=== PATIENT | female | born 1940 | race Caucasian/White ===

== ENCOUNTER 2016-07-02 08:54 | Inpatient (IN) ==
[2016-07-02] MEDS ORDERED: Naloxone 0.4 MG/ML INJ IVP PRN (12:08)
[2016-07-02] MEDS ORDERED: Ondansetron 4 MG/2 ML VIAL IVP PRN (12:08)
--- NOTE | 2016-07-02 12:21 | Internal Med History&Physical ---
Date of Encounter: 07/02/16 Time of Encounter: 12:00 Assessment and Plan (1) NSTEMI (non-ST elevated myocardial infarction) Current visit: Yes Status: Acute 1 patient experiencing fullness radiating to chest pain radiating bilaterally to arms been going on for approximately 2 weeks. She presented to [facility] ER and was found to have an elevated troponin 2.09. No ST-T wave abnormalities noted. She was given aspirin general heparin drip. We will continue with heparin drip 2 continue cardiac monitoring 3 continue aspirin and beta garth statin 4 obtain cardiac echo 5 consult cardiology 6 trend troponins (2) HTN (hypertension) Current visit: Yes Status: Chronic 1 presently controlled we will continue with home medications goal was to maintain systolic less than 140 2 low sodium diet Qualifiers: Hypertension type: essential hypertension Qualified Code(s): I10 - Essential (primary) hypertension (3) Diabetes mellitus Current visit: Yes Status: Acute 1 we will hold oral antidiabetics for now Accu-Cheks before meals at bedtime with slight scale insulin, goal is to maintain postprandial less than 180 2 diabetic diet Qualifiers: Diabetes mellitus type: type 2 Diabetes mellitus complication status: without complication Diabetes mellitus termite exterminator insulin use: without termite exterminator use Qualified Code(s): E11.9 - Type 2 diabetes mellitus without complications (4) DVT prophylaxis Current visit: Yes Status: Acute 1 on heparin drip Internal Medicine - H&P: HPI Chief complaint: Chest pain Admitted From: Hospital to Hospital Transfer Plans for Post Hospital Care: Home History of present illness: Ms. Pagan is a 75 year old female past history of diabetes hypertension. According to the patient she has been experiencing intermittent throat pain radiating to her chest. There are no aggravating factors the pain is relieved with rest. She denies any shortness of breath diaphoresis, nausea lightheadedness during these episodes. Patient states that she is recently had her blood pressure medication changed due to lower extremity edema she had been doing well until this morning when she awoke with pain in her throat that radiated down to her chest into both arms. She describes pain as a tightening pressure she was concerned she was having a heart attack she went to the [facility] ER in [place] for evaluation. According to [place] [facility] records patient's first cardiac troponin was 0.[address] T wave abnormalities patient was hypertensive with a systolic blood pressure 190 chest x-ray revealed mild cardiomegaly and some pulmonary vascularity. Patient was given a aspirin as well as a total 0.2 clonidine which did decrease her blood pressure and initiated on a heparin drip. She was transferred to [facility] for further workup and evaluation. Presently patient denies any chest pain or shortness of breath at this time. She is hemodynamically stable lung sounds are clear heart sounds S1 and S2 with no rubs clicks gallops murmurs noted. EKG with no ST T wave abnormalities. Obtain stat troponin. I reviewed his case with Dr. Gardner who agrees with plan. Past Med Surg Social Fam HX - Past Medical History Medical history: diabetes, hyperlipidemia, hypertension Psychiatric history: no psych history - Past Surgical History Surgical History: hysterectomy - Social History Smoking Status: Never smoker Smokeless Tobacco Status: No Alcohol use: none Drug use: none - Family History Mother Living Status: Age at : 66 Cause of : Oviarn Cancer Hx Family Cancer: Yes Father Living Status: Age at : 60 Hx Family Cardiac Disorders: Yes Hx Family Respiratory Disorders: Yes Internal Medicine - H&P: Meds Acetaminophen w/Cod 300-30 mg [Tylenol w/Codeine #3] 1 each PO Q6HR PRN [History] Amlodipine Besylate [Amlodipine Besylate] 10 mg PO DAILY 07/02/16 [History] Aspirin Enteric Coated [Aspirin EC] 81 mg PO DAILY 07/02/16 [History] Atorvastatin [Lipitor] 10 mg PO HS 07/02/16 [History] Carvedilol 12.5 mg PO BID 07/02/16 [History] metFORMIN [Glucophage] 1,000 mg PO BIDWM 07/02/16 [History] Allergies Sulfa (Sulfonamide Antibiotics) Allergy (Severe, Verified 11/01/14 07:35) Hives All Systems PM: A 10-system review of systems was performed and is negative for pertinent findings except as documented above in the HPI. - Constitutional Constitutional: no chills, no fever(s), no night sweats - EENT Eyes: no change in vision, no discharge, no pain, no photophobia Nose, mouth and throat: no dysphagia, no nasal discharge, no neck pain, no sore throat - Cardiovascular Cardiovascular ROS IM: chest pain, edema - Respiratory Respiratory: no cough, no dyspnea, no wheezing, no excessive phlegm production - Gastrointestinal Gastrointestinal: no abdominal pain, no diarrhea, no hematemesis, no hematochezia, no melena, no nausea, no vomiting - Genitourinary Genitourinary: no change in urinary stream, no dysuria, no flank pain, no hematuria - Musculoskeletal Musculoskeletal ROS IM: no numbness, no tingling - Integumentary Integumentary IM: no rash, no unusual bruising - Neurological Neurological ROS: no confusion, no convulsions, no focal weakness, no numbness, no tingling, no tremor(s) - Hematologic/Lymphatic Hematologic/Lymphatic: no easy bruising - Constitutional Vitals: Temp Pulse Resp BP Pulse Ox 98.1 F 55 16 136/63 96 07/02/16 10:58 07/02/16 10:58 07/02/16 10:58 07/02/16 10:58 07/02/16 10:58 General appearance: Present: A&O X 3 - Head Head exam: Present: atraumatic, normocephalic - Eye Eye exam: Present: PERRL, conjuntiva pink, sclera anicteric Pupils: Present: PERRL - Neck Neck exam general surgery: Present: supple, trachea midline. Absent: lymphadenopathy - Respiratory Respiratory exam: Present: CTAB. Absent: accessory muscle use, rales, rhonchi, wheezes - Cardiovascular Cardiovascular exam: Present: RRR, +S1, +S2. Absent: diastolic murmur, gallop, rubs, systolic murmur - GI/Abdominal GI/Abdominal exam: Present: normal bowel sounds, soft, no peritoneal signs. Absent: distended, tenderness - Extremities Exam Extremities exam: Present: warm, radial pulses palpable and symetrical. Absent : calf tenderness, cyanotic, pedal edema - Neurological Exam Neurological exam: Present: CN II-XII intact, oriented X3, no focal deficits. Absent: pronater drift, facial droop, speech deficit - Skin Skin exam: Present: dry, intact Internal Med - H&P Results - Labs CBC & Chem 7: 07/02/16 11:57 Labs: Lab work per [facility] dated 07/02/2016 0 5:23 AM CBC Leukocytes 9.4 hemoglobin 12.3 hematocrit 38 platelets 308 Chem-7 -sodium 141 potassium 4.2 chloride 103 CO2 28 BUN 14 glucose 148 creatinine 0.83 GFR greater than 60 Troponin 0.209 - EKG Data EKG shows normal: sinus rhythm - EKG Data Prior EKG available for review: no - Diagnostic Studies Chest x-ray Additional comments: Per radiology read mild cardiomegaly. Pulmonary vascularity upper limits of normal. Low lung volumes. No gross focal consolidation or pleural effusion or fracture. Mild thoracic curvature
[2016-07-02] MEDS ORDERED: *HR* Heparin 5,000 UNIT/ML VIAL IVP PRN ×2 (12:34)
--- NOTE | 2016-07-02 12:40 | Event Note ---
Date of Encounter: 07/02/16 Time of Encounter: 12:38 Patient seen and examined with nurse practitioner. New Onset crescendo angina. Troponin is elevated due to NSTEMI type 1 most likely vs. Hypertensive emergency. But her pain is definately concerning. Continue heparin drip, Aspirin , coreg. Will speak with cardiology. Repeat EKG. Echocardiography. Continous telemetry monitoring. Full code.
[2016-07-02] MEDS ORDERED: Heparin 25,000 UNIT/500 ML D5W 25,000 UNIT/500 ML MLS IVC SCH (12:45)
[2016-07-02 12:50] LABS: Hematocrit 35.7 % (35.3-44.9); Hemoglobin 11.6 g/dL (11.5-15.4); Mean Corpuscular HGB Conc 32.5 g/dL (31.6-35.5); Mean Corpuscular Hemoglobin 28.1 pg (28.0-33.3); Mean Corpuscular Volume 86.4 fL (83.0-100.0); Mean Platelet Volume 10.2 fL (9.4-12.4); Platelet Count 270 K/mcL (140-400); Red Blood Count 4.13 M/mcL (3.82-4.97); Red Cell Distribution Width 13.7 % (11.5-14.5)
[2016-07-02 12:53] LABS: INR 1.3; Prothrombin Time 13.9 Seconds (9.4-12.1)
--- NOTE | 2016-07-02 14:12 | Cardiology Consult Note ---
Date of Encounter: 07/02/16 Time of Encounter: 13:30 Assessment and Plan (1) NSTEMI (non-ST elevated myocardial infarction) Current Visit: Yes Status: Acute NSTEMI type I vs. II in the setting of severely elevated BP. Typical/atypical features. Troponin 0.209 ([facility]) and 0.20 now. No ischemic ECG changes upon exam. Denies chest pain, reports "light" throat fullness. Risk factors for CAD include: DMII, HTN, HLD, and positive family history. Continue heparin gtt, asa, statin, and betablocker. Will increase statin to 40 mg daily. Continue to trend troponin overnight. Check echocardiogram. Will make NPO after MN for likely ischemic evaluation in the morning. (2) HTN (hypertension) Current Visit: Yes Status: Chronic Reports recent change in blood pressure medication by PCP. Uncontrolled upon presentation to ED, now stable. Continue to monitor and adjust accordingly. Qualifiers: Hypertension type: essential hypertension Qualified Code(s): I10 - Essential (primary) hypertension Discussion w patient/family: The assessment and plan as outlined above was discussed with the patient and/or family members who expressed understanding and agreement. All questions were answered. Thank you for involving us in the care of your patient. Please call with any questions. The patient will be discussed and reviewed with Dr. Barriga; changes to be made accordingly. History of Present Illness Consult date: 07/02/16 Requesting physician: Giorgio Gardner Consult reason: NSTEMI Chief complaint: Chest/throat pain History of present illness: Ms. Pagan is a 75 year old female with PMH significant for DMII, HTN, HLD, and bilateral knee osteoarthritis who presented to [facility] ED with throat pain "choking sensation" with radiation down neck, across chest, and down bilateral arms. Patient states pain lasted seconds to a minute and resolved without intervention. Reports 1 week history of intermittent tongue and neck discomfort , each episode only lasting seconds. Discomfort is not exacerbated with exercise or exertion. Nothing seems to improve pain. PCP recently changed blood pressure medication due to bilateral lower extremity edema. She has followed with Dr. Hernandez for bilateral knee osteoarthritis; has been told she will knee total knee replacement in the near future. Also has upcoming appt. with Dr. Frank for LE vascular extremity "calcification." Past Med Surg Social Fam HX - Past Medical History Attestation: Yes The following information was validated with the patient. Source: patient Medical history: arthritis, diabetes, hyperlipidemia, hypertension Psychiatric history: no psych history - Past Surgical History Surgical History: hysterectomy - Social History Smoking Status: Never smoker Smokeless Tobacco Status: No Alcohol use: none Drug use: none - Family History Mother Living Status: Age at : 66 Cause of : Ovarian CA Hx Family Cancer: Yes Father Living Status: Age at : 60 Hx Family Cardiac Disorders: Yes Hx Family Respiratory Disorders: Yes Brother Living Status: Cause of : reported LA Sister Living Status: Cause of : reported LA Medications and Allergies Acetaminophen w/Cod 300-30 mg [Tylenol w/Codeine #3] 1 each PO Q6HR 07/02/16 [ History] Acetaminophen w/Cod 300-30 mg [Tylenol w/Codeine #3] 1 each PO Q6HR 07/02/16 [ History] Atorvastatin [Lipitor] 10 mg 07/02/16 [History] Coreg 12.5 mg BID 07/02/16 [History] metFORMIN [Glucophage] 1,000 mg PO BIDWM 07/02/16 [History] Allergies Sulfa (Sulfonamide Antibiotics) Allergy (Severe, Verified 11/01/14 07:35) Hives All Systems Review: A 10-system review of systems was performed and is negative for pertinent findings except as documented above in the HPI. - Cardiovascular Cardiovascular: as per HPI Physical Examination Vital Signs, Last 4 Hours Temp Pulse Resp BP Pulse Ox 07/02/16 10:58 98.1 F 55 16 136/63 96 General: Conversant, No Apparent Distress HEENT: Atraumatic, Normocephaly, Mucus Membranes Moist Cardiac: Reg Rate and Rhythm (bradycardiac), Other (2/6 systolic murmur) Lungs: Normal Breath Sounds Neuro: Alert and responsive Abdomen: Soft Skin: No rashes noted on visualized skin Musculoskeletal: No Chest Wall Tenderness Extremities: Normal Pulses, Other (mild BLE non-pitting edema) Results 07/02/16 11:57 Lab Results 07/02/16 07/02/16 07/02/16 11:57 11:57 11:57 WBC 11.8 H Hgb 11.6 Hct 35.7 Plt Count 270 INR 1.3 Troponin I 0.20 H* Active Medications Aspirin (Aspirin Ec) 81 mg PO DAILY [facility] Stop: 01/02/17 09:01 Carvedilol (Coreg) 12.5 mg PO BID [facility] Stop: 01/01/17 21:01 Heparin Sodium (Porcine) (Heparin) 4,000 unit IVP Q6HR PRN PRN Reason: SEE COMMENTS Stop: 01/01/17 12:35 Heparin Sodium (Porcine) (Heparin) 2,000 unit IVP Q6H PRN PRN Reason: SEE COMMENTS Stop: 01/01/17 12:35 Heparin Sodium/Dextrose (Heparin 25,000 Unit/500 Ml D5w) 25,000 unit in 500 mls @ 16.452 mls/hr IVC .Q24H SUMANTH; 12 UNIT/KG/HR PRN Reason: Protocol Stop: 01/01/17 12:46 Insulin Human Lispro (Humalog) 0 units SQ TIDAC SUMANTH PRN Reason: Protocol Stop: 01/01/17 16:31 Naloxone HCl (Narcan) 0.4 mg IVP Q2MIN PRN PRN Reason: Opioid Reversal Stop: 01/01/17 12:09 Ondansetron HCl (Zofran) 4 mg IVP Q8HR PRN PRN Reason: Nausea And Vomiting Stop: 01/01/17 12:09 - Imaging and Cardiology Echo: pending Other Results: HR mid 50's SB - EKG Interpretation EKG results cardiology: personally reviewed Consult Discharge Plan - Plan Referrals: Margareth Meyer MD [Primary Care Provider] -
[2016-07-02 14:48] LABS: Activated Partial Thrombo Time 181.8 Seconds (26.0-36.0)
--- NOTE | 2016-07-02 15:03 | Electrocardiograph Report ---
[place] [id number] Test Date: 2016-07-02 Pat Name: Jocelynn Pagan Department: 111 Room: 2NE33 Gender: F Glaciologist: NINI : 1940 Requested By: Mandy Mansfield Order Number: [id number] Reading MD: Thaddeus Alanis MD Measurements Intervals [place] Rate: 52 P: 43 AR: 172 QRS: -5 QRSD: 93 T: -5 QT: 421 QTc: 402 Interpretive Statements SINUS BRADYCARDIA MODERATE VOLTAGE CRITERIA FOR LVH Electronically Signed On 07-02-2016 15:01:17 EDT by Thaddeus Alanis MD
[2016-07-02 15:07] LABS: Heparin anti-factor XA UFH 1.22 IU/mL (0.30-0.70)
[2016-07-02] MEDS ORDERED: Nitroglycerin 0.4 MG TAB.SUBL SL PRN (15:07)
[2016-07-02] MEDS: Insulin LISPRO 300 UNITS/3 ML VIAL SQ SCH (17:40)
[2016-07-03] MEDS: Acetaminophen 325 MG TABLET PO PRN (01:35)
[2016-07-03 05:53] LABS: Basophils # 0.1 K/mcL (0.0-0.2); Basophils % 0.6 %; Eosinophils # 0.1 K/mcL (0.0-0.6); Eosinophils % 1.2 %; Hematocrit 38.5 % (35.3-44.9); Hemoglobin 12.6 g/dL (11.5-15.4); Immature Granulocytes % 0.4 % (0-4); Lymphocytes # 4.5 K/mcL (0.6-4.6); Lymphocytes % 39.3 %; Mean Corpuscular HGB Conc 32.7 g/dL (31.6-35.5); Mean Corpuscular Hemoglobin 28.2 pg (28.0-33.3); Mean Corpuscular Volume 86.1 fL (83.0-100.0); Monocytes # 0.9 K/mcL (0.0-1.3); Monocytes % 7.6 %; Neutrophils # 5.8 K/mcL (1.6-8.9); Platelet Count 284 K/mcL (140-400); Red Blood Count 4.47 M/mcL (3.82-4.97); Red Cell Distribution Width 13.8 % (11.5-14.5); Segmented Neutrophils % 50.9 %
[2016-07-03 06:17] LABS: BUN/Creatinine Ratio 19 (6-26); Blood Urea Nitrogen 15 mg/dL (7-20); Calcium 9.8 mg/dL (8.6-10.8); Carbon Dioxide 26 mEq/L (19-29); Chloride 105 mEq/L (98-109); Chol/HDL Ratio 2.8 (0-4.9); Cholesterol 155 mg/dL (< 200); Glucose 150 mg/dL (70-99); HDL Cholesterol 55 mg/dL (40-59); LDL Cholesterol,Calculated 75 mg/dL (0-99); Magnesium 1.7 mg/dL (1.6-2.6); Osmolality,Calculated 290 (280-300); Potassium 4.2 mEq/L (3.5-4.5); Sodium 138 mEq/L (136-145); Triglycerides 126 mg/dL (< 150); eGFR For African Americans > 60 (> 60); eGFR For Non-African Americans > 60 (> 60)
[2016-07-03] MEDS ORDERED: Nitroglycerin 1,000 MCG/10 ML VIAL IV ONE (08:10)
[2016-07-03] MEDS ORDERED: 0.9 % Sodium Chloride 1,000 ML ONE ×2 (08:10→08:28)
[2016-07-03] MEDS ORDERED: Heparin 1,000 UNITS/500 mL NS 500 ML ONE (08:10)
[2016-07-03] MEDS ORDERED: *HR* Heparin 10,000 UNIT/10 ML VIAL ONE (08:10)
[2016-07-03] MEDS ORDERED: Verapamil 5 MG/2 ML VIAL ONE (08:10)
[2016-07-03] MEDS: Insulin LISPRO 300 UNITS/3 ML VIAL SQ SCH ×3 (08:11→18:13)
[2016-07-03] MEDS: Aspirin Enteric Coated 81 MG Tablet PO SCH (08:14)
[2016-07-03] MEDS ORDERED: *HR* FentaNYL (PF) 100 MCG/2 ML VIAL ONE (08:25)
[2016-07-03] MEDS ORDERED: *HR* Midazolam HCl 2 MG/2 ML VIAL ONE (08:25)
--- NOTE | 2016-07-03 08:47 | Pre-Sedation Evaluation ---
Pre-sedation evaluation - Pre-sedation checklist Date of procedure: 07/03/16 Procedure: Left Heart Catheterization Recent Vitals: Last Vital Signs Temp 98.1 F 07/03/16 07:13 Pulse 53 07/03/16 07:13 Resp 16 07/03/16 07:13 BP 147/63 07/03/16 07:13 Pulse Ox 93 07/03/16 07:13 H&P (including ROS) documented in medical record: Yes Previous reaction to sedatives/anesthetics: No Dietary Status: NPO after Midnight Dentition: No loose teeth or bridges, dentures removed ASA Classification *see protocol: CLASS II-Mild systemic disease Plan of Care: Pt appropriate candidate for procedure/moderate/conscious sedation , Risks/benefits of procedure/sedation discussed w/ patient/family
[2016-07-03] MEDS ORDERED: Tirofiban 5 MG/100ML 5 MG/100 ML BAG IV ONE (09:18)
--- NOTE | 2016-07-03 09:32 | ECHO - Doppler Report ---
Echocardiogram Name: Jocelynn Pagan Date of Study: 07/02/2016 Date: 1940 Ht: 63.0 in Medical Record#: [id number] Age: 75 Wt: 151.0 lb Gender: Female BSA: 1.72 Order #: [id number] Location: [facility] Room #: 2NE33 Reading Physician: Gustavo Anderson MD, [facility] Cell Manager: Lori Hooks Ordering Physician: Mandy Mansfield CNP Primary Physician: Margareth Meyer MD Indications: Chest pain Impressions: LVEF 60-65%. There is akinesis of the basal inferior wall. Mild left ventricular diastolic dysfunction. Normal right ventricular size and function. Moderately dilated left atrium. No significant valvular dysfunction. Mild pulmonary hypertension. Estimated RVSP = 32 mmHg. Left Ventricular Wall Motion: Rest Echo Findings The basal inferior wall was akinetic. All other wall segments showed normal motion. Findings: Study Quality * Suboptimal echo windows. ECG Findings * Sinus rhythm and sinus bradycardia. Left Ventricle * LVEF 60-65%. There is akinesis of the basal inferior wall. * Normal LV chamber size and wall thickness. * Mild left ventricular diastolic dysfunction. Right Ventricle * Normal right ventricular size and function. Left Atrium * Moderately dilated left atrium. Right Atrium * Normal right atrial size. Aorta * Normally sized aortic root. Pericardium * There is no pericardial effusion present. IVC * The IVC is not dilated. Aortic Valve * Trileaflet aortic valve. * No aortic stenosis. * No aortic regurgitation. Mitral Valve * Normal mitral valve structure. * No mitral stenosis. * Trace mitral regurgitation. Tricuspid Valve * Tricuspid valve not well visualized. * No tricuspid stenosis. * Trace tricuspid regurgitation. * Mild pulmonary hypertension. Estimated RVSP = 32 mmHg. Pulmonic Valve * Pulmonic valve not well visualized. * No pulmonic stenosis. * No pulmonic regurgitation. History Hypertension Diabetes Hypercholesteremia Family History of CAD Measurements: BP: 136/ 63 2D Normal Values RVIDd: 3.30 cm IVSd: 1.00 cm 0.6 - 1.0 cm LVIDd: 4.50 cm 3.7 - 5.6 cm LVPWd: 1.00 cm 0.6 - 1.1 cm LVIDs: 2.60 cm 1.5 - 3.6 cm AO: 2.60 cm < 4.0 cm %FS: 42.20 cm >25 % LA volume: 72 Mitral Valve Peak E:.80 m/sec Peak A:1.00 m/sec E/A Ratio:0.8 Tricuspid Valve TV Regurg Peak Grad: 32.00mmHg TV Regurg Peak Zia: 2.84m/sec Updated by Gustavo Anderson MD, [facility] on 07/03/2016 9:26:19 AM electronically signed on 07/03/2016 9:26:59 AM with status of Final Wall Motion Chinchilla: 1=Normal, 2=Hypokinesis, 3=Akinesis, 4=Dyskinesis, 5=Aneurysmal, 6=Hyperkinetic, X=Not Visualized (Blank)=Missing
[2016-07-03] MEDS ORDERED: *HR* Ticagrelor 90 MG TABLET ONE (09:46)
[2016-07-03] MEDS ORDERED: Tirofiban 12.5 MG/250ML 12.5 MG/250 ML BAG IVC SCH (10:00)
--- NOTE | 2016-07-03 12:50 | Invasive Diagnostic Lab Proc ---
Name: Jocelynn Pagan Date of Study: 07/03/2016 Date: 1940 Ht: 63.0in Medical Record#: [id number] Age: 75 Wt: 151.24lb Gender: Female BSA: 1.72 Order #: [id number] BMI: 26.8 Physicians Procedure Physician: Thaddeus Alanis MD, FACC Referring MD: Referring MD: Staff Name Position Time In DarcyHetal aldana RT (R) Scrub 08:34 AM Mary Bailey RN Ocean Import Representative 08:34 AM Beatrice Garcia RN Monitor 08:34 AM Indications Indication Non-Stemi Procedures Performed Procedure L HRT ARTERY/VENTRICLE ANGIO PRQ CARD FEMI STENT W/ANGIO 1 VSL Pre-Procedure Checklist Informed consent is complete signed and on chart. H\\T\\P is on chart. ID band is on and ID verified with patient. Patient NPO for procedure The procedure was described for the patient and questions were answered. Blood Pressure: 147/63 ECG is on chart. Rhythm: Sinus Bradycardia Plan of Care Patient will tolerate the procedure without complications. Adequate level of comfort will be maintained. Hemodynamics will remain stable Patient will recover from procedure without complications. Respiratory function will be maintained. Cardiac rhythm will remain stable. Patient temperature will be maintained. Patient and/or family have verbalized understanding of the procedure. Patient Education Chief Complaint/Reason for Test: Cardiac Cath Developmental Category: Geriatric (65+ years) Developmentally Appropriate for Age: Yes Learning Barriers: None Education Needs: Procedure Education Method: Verbal Information Taught: Cardiac Cath Educational Evaluation: Able to repeat information Intravenous Access Time IV Size Location DC'd Fluid/Drip Rate Units RN 08:19 AM 20g 1 /" Patent On Arrival Lt Antecubital 0.9NaCl 50 ml/hr Beatrice Garcia RN Allergies Sulfa (Sulfonamide Antibiotics) Vital Signs Time BP (mmHg) HR (bpm) O2 Sat. RR (bpm) LOC 08:19 AM 147 / 63 53 93 % 16 5 = Fully awake and oriented or at pre-proc level 08:43 AM / % 5 = Fully awake and oriented or at pre-proc level 08:43 AM / % 4 = Oriented but drowsy 08:59 AM / % 4 = Oriented but drowsy 09:14 AM / % 4 = Oriented but drowsy 09:30 AM / % 5 = Fully awake and oriented or at pre-proc level 08:48 AM 217 / 82 60 95 % 08:50 AM 187 / 76 56 94 % 18 08:52 AM 172 / 66 61 92 % 19 08:57 AM 110 / 49 53 97 % 24 09:02 AM 133 / 58 54 98 % 12 09:06 AM 123 / 61 49 98 % 13 09:12 AM 137 / 58 51 98 % 14 09:16 AM 143 / 65 55 98 % 23 09:22 AM 150 / 61 51 98 % 14 09:27 AM 133 / 59 53 99 % 14 09:32 AM 174 / 61 60 100 % 15 09:37 AM 152 / 57 49 100 % 14 09:42 AM 151 / 66 50 100 % 18 10:00 AM 159 / 59 50 97 % 15 5 = Fully awake and oriented or at pre-proc level 10:15 AM 156 / 58 53 95 % 14 5 = Fully awake and oriented or at pre-proc level 10:15 AM 156 / 88 54 95 % 12 5 = Fully awake and oriented or at pre-proc level 10:30 AM 127 / 44 48 94 % 20 5 = Fully awake and oriented or at pre-proc level 10:45 AM 126 / 50 48 95 % 16 5 = Fully awake and oriented or at pre-proc level 11:00 AM 122 / 53 47 97 % 12 5 = Fully awake and oriented or at pre-proc level 11:15 AM 122 / 57 46 98 % 16 5 = Fully awake and oriented or at pre-proc level 11:35 AM 120 / 56 52 97 % 17 5 = Fully awake and oriented or at pre-proc level 11:50 AM 126 / 61 52 97 % 16 5 = Fully awake and oriented or at pre-proc level 12:00 PM 192 / 64 54 98 % 16 5 = Fully awake and oriented or at pre-proc level 12:05 PM 150 / 64 52 96 % 16 5 = Fully awake and oriented or at pre-proc level 12:10 PM 143 / 61 60 96 % 15 5 = Fully awake and oriented or at pre-proc level 12:15 PM 142 / 62 52 96 % 16 5 = Fully awake and oriented or at pre-proc level 12:25 PM 114 / 63 51 96 % 19 5 = Fully awake and oriented or at pre-proc level Procedural Medications Time Medication Dose Units Method Given By 08:42 AM Oxygen 2 L/min nasal Mary Madsen RN 08:50 AM Versed 2 mg Intravenous Mary Bailey RN 08:50 AM Fentanyl 50 mcg Intravenous Mary Bailey RN 08:55 AM Oxygen 4 L/min nasal cannula Mary Bailey RN 09:01 AM Lidocaine 2% 20 ml Subcutaneous Thaddeus Alanis MD, [facility] 09:19 AM Aggrastat 5mg/100ml 12 ml Intravenous Mary Bailey RN 09:19 AM Aggrastat Bolus: 33 ml Intravenous Mary Bailey RN 09:20 AM Heparin 3000 units Intravenous Mary Bailey RN 09:42 AM Brillinta 180 mg Orally Mary Bailey RN ASA Classification: CLASS II- Mild systemic disease (i.e. well-controlled diabetes, hypertension, asthma, cigarette smoking) Promise Score Preprocedure Postprocedure Activity 2- Moves 4 extremities sustained head lift Activity 2- Moves 4 extremities sustained head lift Circulation 2- SBP +/= 20 points of pre-anesthetic level Circulation 2- SBP +/= 20 points of pre-anesthetic level Consciousness 2- Awake and alert oriented x 3 Consciousness 2- Awake and alert oriented x 3 O2 Saturation 2- Able to maintain O2 satruation of 92% on room air O2 Saturation 2- Able to maintain O2 satruation of 92% on room air Respiratory 2- Able to deep breathe and cough well Respiratory 2- Able to deep breathe and cough well Total Score 10 Total Score 10 Contrast Agent: Isovue Diagnostic Contrast: 90 ml Total Contrast: 90 ml Fluoro Dose: 467 mGy Activated Clotting Time Time Seconds to Clot 09:20 AM 145 09:46 AM 218 10:45 AM 211 11:50 AM 168 Procedure Log Time Note Enter By 08:21 AM CathStat 08:21 AM Case Start 08:33 AM Pt arrived to chemical laboratory chief 2 at 08:33 [email or web address] 08:34 AM Hetal Taveras RT (R) Position: Scrub Time in: 08:34 [email or web address] 08:34 AM Mary Bailey RN Position: Ocean Import Representative Time in: 08:34 [email or web address] 08:34 AM Beatrice Garcia RN Position: Monitor Time in: 08:34 [email or web address] 08:34 AM Patient charges- Angio tray pack, Navilyst 3mm J, Pulse Oximetry and ACIST tubing and transducer [email or web address] 08:34 AM Case Delayed No [email or web address] 08:34 AM Hair removed from procedure site in procedure lab using clippers. Bilateral groin prepped with Chloraprep by Beatrice Garcia RN, safety strap applied then patient was draped. Skin intact. [email or web address] 08:34 AM Hair removed from procedure site in procedure lab using clippers. Right wrist prepped with Chloraprep by Beatrice Garcia RN, safety strap applied then patient was draped. Skin intact. [email or web address] 08:34 AM Physican paged/called 08:34. [email or web address] 08:34 AM ASA Class CLASS II- Mild systemic disease (i.e. well-controlled diabetes, hypertension, asthma, cigarette smoking) [email or web address] 08:42 AM Physician arrived 08:42 [email or web address] 08:42 AM Meet and greet completed [email or web address] 08:42 AM Sign in performed according to hospital policy. [email or web address] 08:42 AM Procedure start 08:42 [email or web address] 08:42 AM Time: 08:42 Oxygen on at 2 L/min per nasal cannula by Mary Bailey RN [email or web address] 08:43 AM Time: 08:42 Patient comfortable and pain free: Yes [email or web address] 08:43 AM Time: 08:43LOC: 5 = Fully awake and oriented or at pre-proc level [email or web address] 08:43 AM Clinical Presentation: Non-STEMI [email or web address] 08:46 AM Vitals capture started with the following parameters, Patient=Adult, Interval=5 min, Initial Fssjmcty=582 mmHg, Deflation Rate=5 mmHg, Cuff placed on Right Arm 08:48 AM HR=60 bpm, BMJM=563/82 mmhg, SpO2=95.0 %, Comment=SB 08:49 AM Recorded ECG: HR=66 Condition=Condition 1 08:49 AM NIBP STAT measurement started. 08:50 AM Time: 08:50 Versed 2 mg Intravenous Given by Mary Bailey RN [email or web address] 08:50 AM HR=56 bpm, OJYS=716/76 mmhg, SpO2=94.0 %, Resp=18 B/min, Comment=SB 08:50 AM Time: 08:50 Fentanyl 50 mcg Intravenous Given by Mary Bailey RN [email or web address] 08:52 AM HR=61 bpm, XHHI=988/66 mmhg, SpO2=92.0 %, Resp=19 B/min, Comment=SB 08:54 AM Pressure channel 1 zero failed. 08:55 AM Pressure channel 1 zero failed. 08:55 AM Pressure channel 1 zeroed. 08:55 AM Time: 08:55 Oxygen on at 4 L/min per nasal cannula by Mary Bailey RN [email or web address] 08:57 AM HR=53 bpm, IEPG=988/49 mmhg, SpO2=97.0 %, Resp=24 B/min, Comment=SB 08:59 AM Time: 08:43LOC: 4 = Oriented but drowsy [email or web address] 08:59 AM Time: 08:43 Patient comfortable and pain free: Yes [email or web address] 09:00 AM Time out performed according to hospital policy [email or web address] 09:01 AM Time: 09:01 20 ml Lidocaine 2% to right groin Subcutaneous Given by Thaddeus Alanis MD, [facility] [email or web address] 09:02 AM HR=54 bpm, ZXNI=144/58 mmhg, SpO2=98.0 %, Resp=12 B/min, Comment=SB 09:03 AM Access obtained by percutaneous puncture. 5Fr 10cm Terumo [place] sheath placed in right Femoral artery. [id number] [email or web address] 09:03 AM 0.035 145cm Navilyst 3mmJ wire [id number] [email or web address] 09:04 AM 5Fr FL 4 catheter inserted over the wire [facility] [email or web address] 09:05 AM Catheter removed [email or web address] 09:06 AM 5Fr FL 3.5 catheter inserted over the wire [id number] [email or web address] 09:06 AM HR=49 bpm, KUIB=423/61 mmhg, SpO2=98.0 %, Resp=13 B/min, Comment=SB 09:07 AM Recorded Pressure: Ao, HR=51, Condition=Condition 1 (Aorta) Ao 132/49/79 09:07 AM LCA angiography performed in multiple views. [email or web address] 09:09 AM Catheter removed [email or web address] 09:09 AM 5Fr FR 4 catheter inserted over the wire DN [email or web address] 09:09 AM Lesion found in Proximal LAD. Pre Stenosis: 20 Pre JULY Flow: [email or web address] 09:09 AM Lesion found in Mid LAD. Pre Stenosis: 20 Pre JULY Flow: [email or web address] 09:09 AM Lesion found in 2nd Marginal. Pre Stenosis: 50 Pre JULY Flow: [email or web address] 09:09 AM Proximal Left Anterior Descending Coronary Artery with 20% stenosis. If graft is supplying this territory, 0 % stenosis. [email or web address] 09:09 AM Mid/Distal Left Anterior Descending Coronary Artery and diagonal branches with 20% stenosis. If graft is supplying this area, 0 % stenosis [email or web address] 09:09 AM Circumflex, Obtuse Marginal, Left Posterior Descending, and Left Posterolateral Coronary Arteries with 50 % stenosis. If graft is supplying this area, 0 % stenosis [email or web address] 09:10 AM RCA angiography performed in multiple views. [email or web address] 09:10 AM Coronary Dominance: right [email or web address] 09:10 AM Lesion found in Mid RCA. Pre Stenosis: 80 Pre JULY Flow: [email or web address] 09:12 AM Recorded Pressure: LV, HR=51, Condition=Condition 1 (Left Ventricle) LV 147/-5/8 09:12 AM Catheter removed [email or web address] 09:12 AM 5Fr Pigtail catheter inserted over the wire [facility] [email or web address] 09:12 AM Catheter selectively placed in left ventricle [email or web address] 09:12 AM HR=51 bpm, RPTF=084/58 mmhg, SpO2=98 %, Resp=14 B/min 09:12 AM Bolus angiogram of left Ventricle complete: 10 ml/sec for a total of 20 mls [email or web address] 09:14 AM Time: 08:59 Patient comfortable and pain free: Yes [email or web address] 09:14 AM Time: 08:59LOC: 4 = Oriented but drowsy [email or web address] 09:15 AM Recorded Pressure: LV, Ao, HR=54, Condition=Condition 1 (Left Ventricle) LV 145/-3/6, (Aorta) Ao 141/48/80 09:15 AM Catheter removed [email or web address] 09:15 AM PCI Status Urgent [email or web address] 09:15 AM PCI Indication: PCI for high risk Non-STEMI or unstable angina [email or web address] 09:15 AM PCI lesion in Mid RCA. [email or web address] 09:15 AM Sheath exchanged for a 6 Fr 11 cm Cordis Faith sheath [id number] [email or web address] 09:16 AM 6Fr 3 DRC Cordis guide catheter was used to cannulate the PCI vessel successfully. reused? No [email or web address] 09:16 AM .014 PT Graphix 182cm guide wire across target lesion- successful. reused? No [email or web address] 09:16 AM HR=55 bpm, FOMX=530/65 mmhg, SpO2=98.0 %, Resp=23 B/min, Comment=SB 09:17 AM Guide wire removed intact. [email or web address] 09:19 AM Lesion found in Distal RCA. Pre Stenosis: 90 Pre JULY Flow: [email or web address] 09:19 AM Right Coronary, Right Posterior Descending Arteries with Right Posterolateral and Acute Marginal branches with 90 % stenosis. If graft is supplying this area, 0 % stenosis [email or web address] 09:19 AM Time: 09:19 Aggrastat 5mg/100ml 12 ml Intravenous Given by Mary Bailey RN Rothman pump [email or web address] 09:20 AM Time: 09:19 Aggrastat Bolus: 33 ml Intravenous Given by Mary Bailey RN Rothman pump [email or web address] 09:20 AM At 09:20 the ACT was 145 seconds. [email or web address] 09:21 AM Time: 09:20 Heparin 3000 units Intravenous Given by Mary Bailey RN Rothman pump [email or web address] 09:21 AM Recorded Pressure: Ao, HR=53, Condition=Condition 1 (Aorta) Ao 149/49/85 09:21 AM 2.5 mm x 8 mm Emerge Monorail balloon across target lesion- successful. reused? No [email or web address] 09:22 AM HR=51 bpm, KPUV=407/61 mmhg, SpO2=98.0 %, Resp=14 B/min, Comment=SB 09:22 AM balloon removed [email or web address] 09:23 AM Guide wire removed intact. [email or web address] 09:23 AM reshaping wire [email or web address] 09:24 AM wire reinserted [email or web address] 09:24 AM Guide wire removed intact. [email or web address] 09:24 AM .014 Prowater 180cm guide wire across target lesion- successful. reused? No [email or web address] 09:25 AM balloon reinserted [email or web address] 09:27 AM HR=53 bpm, JGBU=857/59 mmhg, SpO2=99.0 %, Resp=14 B/min, Comment=SB 09:27 AM Balloon inflated @ 10 ky for 19 seconds [email or web address] 09:27 AM Balloon inflated @ 8 ky for 11 seconds [email or web address] 09:28 AM Balloon inflated @ 12 ky for 14 seconds [email or web address] 09:30 AM Time: 09:14 Patient comfortable and pain free: Yes [email or web address] 09:30 AM Time: 09:14LOC: 4 = Oriented but drowsy [email or web address] 09:31 AM 2.5mm x 16mm Synergy bioabsorbable stent across target lesion- successful Lot #[id number] [email or web address] 09:32 AM Stent deployed @ 14 ky for 22 seconds [email or web address] 09:32 AM HR=60 bpm, ZIAS=691/61 mmhg, MpL6=147.0 %, Resp=15 B/min, Comment=SB 09:33 AM Stent delivery system removed intact. [email or web address] 09:34 AM 2.5mm x 12mm Synergy bioabsorbable stent across target lesion- successful Lot #[id number] [email or web address] 09:36 AM Stent deployed @ 18 ky for 25 seconds [email or web address] 09:37 AM HR=49 bpm, JINT=359/57 mmhg, OmL7=403.0 %, Resp=14 B/min, Comment=SB 09:37 AM Stent delivery system removed intact. [email or web address] 09:38 AM 3.0 mm x 8mm NC Trek Rx balloon across target lesion- successful. reused? No [email or web address] 09:38 AM Balloon inflated @ 18 ky for 17 seconds [email or web address] 09:39 AM Balloon inflated @ 18 ky for 13 seconds [email or web address] 09:40 AM Balloon catheter removed intact. [email or web address] 09:40 AM Guide catheter removed intact. [email or web address] 09:40 AM Guide wire removed intact. [email or web address] 09:41 AM Bolus angiogram of right Femoral complete: 4 ml/sec for a total of 7 mls [email or web address] 09:42 AM HR=50 bpm, XJEE=706/66 mmhg, DqS8=041.0 %, Resp=18 B/min, Comment=SB 09:42 AM Time: 09:42 Brillinta 180 mg Orally Given by Mary Bailey RN [email or web address] 09:43 AM Procedure completed at 09:43 [email or web address] 09:43 AM Sign out completed: Radiation Dose 467.08 mGy Fluoro Time: 9.4 Isovue 370 - 200ml contrast 90.5 ml given by Thaddeus Alanis MD, FACC. Complications: NoneCardiac Rehab Consult needed: YesConfirmed administered medications: Yes [email or web address] 09:43 AM Isovue 370 - 200ml,1 Bottle(s) used. [email or web address] 09:43 AM Sheath left in place to be pulled on floor/holding areaV+Pad [email or web address] 09:43 AM Post ECG Sinus Bradycardia [email or web address] 09:44 AM Post Blood Pressure 151/66 [email or web address] 09:44 AM Information taught Cardiac Cath and PCI [email or web address] 09:44 AM Education needs Procedure, Plan of Care, and Disease Process [email or web address] 09:44 AM Learning barriers :None [email or web address] 09:44 AM Education Methods Verbal [email or web address] 09:44 AM Education evaluation Able to repeat information [email or web address] 09:44 AM Site status No bleeding/hematoma - Rt Groin as reported by Hetal Taveras RT (R) at 09:44 [email or web address] 09:44 AM Opsite applied [email or web address] 09:44 AM Report given to Fabio PUGA Pt taken to Holding room Room #4. 09:44 [email or web address] 09:44 AM Delay to floor Bed availability [email or web address] 09:45 AM Time: 09:30LOC: 5 = Fully awake and oriented or at pre-proc level [email or web address] 09:45 AM Time: 09:30 Patient comfortable and pain free: Yes [email or web address] 09:49 AM Family placed in consult room. [email or web address] 09:49 AM Complications: None [email or web address] 09:49 AM Isovue 370 - 200ml contrast 90.5 ml given by Thaddeus Alanis MD, FACC. [email or web address] 09:50 AM Radiation Dose 467.08 mGy [email or web address] 09:50 AM Patient out of room: 09:50 [email or web address] 10:00 AM received patient to holding area 4. monitors applied. [facility]N [facility] AM famiy at bedside [email or web address] 10:45 AM At 10:45 the ACT was 211 seconds. [facility] 11:56 AM ACT 168 scoates 12:00 PM Arterial sheath pulled using manual compression for 20 minutes by Mary Bailey RN scoates 12:22 PM Site status No bleeding/hematoma - Rt Groin as reported by Mary Bailey RN at 12:22 scoates 12:22 PM Opsite applied scoates 12:30 PM assisted patient to bedpan and urinated small amount of clear yellow urine. [email or web address] 12:35 PM hematoma noted to right groin pressure held 10 minutes [email or web address] 12:41 PM site soft hematoma resolved [facility] 12:41 PM [facility]: 12[facility] Com[facility] Complication None Hemodynamics Pressures Site Systolic/A Wave Diastolic/V Wave Mean AO 132 49 79 LV 147 -5 8 LV 145 -3 6 AO 141 48 80 AO 149 49 85 Post Procedure Information Blood Pressure: 151/66 mmHg Rhythm: Sinus Bradycardia Post procedural instructions were given Site Checks Time Location Status Staff Sheath In? Note 09:44 AM Rt Groin No bleeding/hematoma Hetal Taveras RT (R) 10:00 AM Rt Groin No bleeding/ No Hematoma Stephanie Morales RN Yes 10:15 AM Rt Groin No bleeding/ No Hematoma Stephanie Morales RN Yes 10:15 AM Rt Groin No bleeding/ No Hematoma Stephanie Morales RN Yes 10:30 AM Rt Groin No bleeding/ No Hematoma Stephanie Morales RN Yes 10:45 AM Rt Groin No bleeding/ No Hematoma Stephanie Morales RN Yes 11:00 AM Rt Groin No bleeding/ No Hematoma Stephanie Morales RN Yes 11:15 AM Rt Groin No bleeding/ No Hematoma Stephanie Morales RN Yes 11:35 AM Rt Groin No bleeding/ No Hematoma Mary Bailey RN Yes 11:45 AM Rt Groin No bleeding/ No Hematoma Mary Bailey RN Yes 12:22 PM Rt Groin No bleeding/hematoma Mary Bailey RN 12:24 PM Rt Groin No bleeding/ No Hematoma Stephanie Morales RN 12:30 PM Rt Groin Hematoma Stephanie Morales RN pressure held 12:41 PM Rt Groin No bleeding/ No Hematoma Stephanie Morales RN hematoma resolved Pulses Time Site Pre-Procedure Post-Procedure Note 07/03/2016 8:19:00 AM Bilateral radial 2+ 07/03/2016 8:50:00 AM Bilateral DP \\T\\ PT 207/03/2016 10:00:00 AM Bilateral DP \\T\\ PT 2+ 07/03/2016 10:15:00 AM Bilateral DP \\T\\ PT 2+ 07/03/2016 10:15:00 AM Bilateral DP \\T\\ PT 2+ 07/03/2016 10:30:00 AM Bilateral DP \\T\\ PT 2+ 07/03/2016 10:45:00 AM Bilateral DP \\T\\ PT 2+ 07/03/2016 11:00:00 AM Bilateral DP \\T\\ PT 2+ 07/03/2016 11:15:00 AM Bilateral DP \\T\\ PT 2+ 07/03/2016 11:50:00 AM Bilateral DP \\T\\ PT 2+ 07/03/2016 12:00:00 PM Bilateral DP \\T\\ PT 2+ 07/03/2016 12:20:00 PM Bilateral DP \\T\\ PT 2+ 07/03/2016 12:24:00 PM Bilateral DP \\T\\ PT 2+ Updated by Stephanie Morales RN on 07/03/2016 12:42:51 PM electronically signed on 07/03/2016 12:43:30 PM with status of Final
--- NOTE | 2016-07-03 13:22 | Internal Med Progress Note ---
<Varsha De Los Santos - Last Filed: 07/03/16 16:52> Date of Encounter: 07/03/16 Time of Encounter: 13:00 - Assessment and plan (1) NSTEMI (non-ST elevated myocardial infarction) Current Visit: Yes Status: Acute Assessment and plan: - Chest pain with elevated troponin (0.209 at Fred, 0.20 and then 0.14) - Echo on 07/02/16 found LVEF 60-65% with akniness of the basal inferior wall. - LHC on 07/03/16 found severe one vessel CAD with normal EF 60%. 2 FEMI placed ( in mid and distal PASSENGER SERVICE MANAGER). - Patient reports no chest pain today. - Continue aspirin, beta garth, statin and Brilinta. - Cardiology on board and appreciate assistance on patient care. - Closely monitor with telemetry. (2) HTN (hypertension) Current Visit: Yes Status: Chronic Assessment and plan: - Insulin sliding scale with routine glucose monitoring. Qualifiers: Hypertension type: essential hypertension Qualified Code(s): I10 - Essential (primary) hypertension (3) Diabetes mellitus Current Visit: Yes Status: Chronic Qualifiers: Diabetes mellitus type: type 2 Diabetes mellitus complication status: without complication Diabetes mellitus detention insulin use: without detention use Qualified Code(s): E11.9 - Type 2 diabetes mellitus without complications (4) DVT prophylaxis Current Visit: Yes Status: Acute - Subjective Interval history: Patient was seen and examined after patient came back from [facility]. Patient reports doing fine and denies chest pain, shortness of breath, lightheadedness, syncope , nausea, vomiting, abdominal pain. - Constitutional Vitals: Temp Pulse Resp BP Pulse Ox 97.6 F 59 18 144/55 97 07/03/16 13:08 07/03/16 13:08 07/03/16 13:08 07/03/16 13:08 07/03/16 13:08 General appearance: Present: cooperative, A&O X 3, no acute distress, answers questions appropriately - Head Head exam: Present: atraumatic, normocephalic - Eye Eye exam: Present: EOMI, PERRL, conjuntiva pink, sclera anicteric - Neck Neck exam general surgery: Present: supple, trachea midline. Absent: lymphadenopathy - Respiratory Respiratory exam: Present: CTAB. Absent: accessory muscle use, rales, rhonchi, wheezes - Cardiovascular Cardiovascular exam: Present: RRR, +S1, +S2. Absent: diastolic murmur, gallop, rubs, systolic murmur - GI/Abdominal GI/Abdominal exam: Present: normal bowel sounds, soft, no peritoneal signs. Absent: distended, tenderness - Extremities Exam Extremities exam: Present: warm, radial pulses palpable and symetrical. Absent : calf tenderness, cyanotic, pedal edema - Neurological Exam Neurological exam: Present: CN II-XII intact, oriented X3, no focal deficits. Absent: pronater drift, facial droop, speech deficit - Skin Skin exam: Present: dry, intact, warm Internal Medicine: Result - Labs CBC & Chem 7: 07/03/16 05:30 07/03/16 05:30 Labs: Short CBC 07/03/16 Range/Units 05:30 WBC 11.4 H (4.3-11.1) K/mcL Hgb 12.6 (11.5-15.4) g/dL Hct 38.5 (35.3-44.9) % Plt Count 284 (140-400) K/mcL Neutrophils # 5.8 (1.6-8.9) K/mcL BMP 07/03/16 05:30 Sodium 138 Potassium 4.2 Chloride 105 Carbon Dioxide 26 BUN 15 Creatinine 0.77 Glucose 150 H Calcium 9.8 Cardiac Enzymes 07/02/16 Range/Units 18:11 Troponin I 0.14 H* (0-0.03) ng/mL - ABG Interpretation ABG results: PT/INR, D-dimer PT 13.9 Seconds (9.4-12.1) H 07/02/16 11:57 Consult Discharge Plan - Plan Referrals: Margareth Meyer MD [Primary Care Provider] - <Baljit Busby - Last Filed: 07/03/16 18:04> Date of Encounter: 07/03/16 - Assessment and plan (1) NSTEMI (non-ST elevated myocardial infarction) Current Visit: Yes Status: Acute (2) CAD (coronary artery disease) Current Visit: Yes Status: Acute Assessment and plan: s/p 2 stents. Qualifiers: Coronary Disease-Associated Artery/Lesion type: [place] artery [place] vs. transplanted heart: [place] heart Associated angina: with unstable angina Qualified Code(s): I25.110 - Atherosclerotic heart disease of [place] coronary artery with unstable angina pectoris (3) Diabetes mellitus Current Visit: Yes Status: Chronic Qualifiers: Diabetes mellitus type: type 2 Diabetes mellitus complication status: with circulatory complication Diabetes mellitus complication detail: with other circulatory complications Diabetes mellitus exterminator insulin use: without exterminator use Qualified Code(s): E11.59 - Type 2 diabetes mellitus with other circulatory complications (4) HTN (hypertension) Current Visit: Yes Status: Chronic Qualifiers: Hypertension type: essential hypertension Qualified Code(s): I10 - Essential (primary) hypertension - Constitutional Vitals: Temp Pulse Resp BP Pulse Ox 98.0 F 57 18 137/67 95 07/03/16 16:13 07/03/16 16:13 07/03/16 16:13 07/03/16 16:13 07/03/16 16:13 Internal Medicine: Result - Labs CBC & Chem 7: 07/03/16 05:30 07/03/16 05:30 Labs: Short CBC 07/03/16 Range/Units 05:30 WBC 11.4 H (4.3-11.1) K/mcL Hgb 12.6 (11.5-15.4) g/dL Hct 38.5 (35.3-44.9) % Plt Count 284 (140-400) K/mcL Neutrophils # 5.8 (1.6-8.9) K/mcL BMP 07/03/16 05:30 Sodium 138 Potassium 4.2 Chloride 105 Carbon Dioxide 26 BUN 15 Creatinine 0.77 Glucose 150 H Calcium 9.8 Cardiac Enzymes 07/02/16 Range/Units 18:11 Troponin I 0.14 H* (0-0.03) ng/mL - ABG Interpretation ABG results: PT/INR, D-dimer PT 13.9 Seconds (9.4-12.1) H 07/02/16 11:57 - Attending Attestation I examined this patient and my medical decision-making was reviewed with the Resident Physician on 07/03/16. I agree with the documented findings, disposition and treatment plan as described except to the extent set forth below. Ms. Pagan is currently admitted for acute NSTEMI. She is moderate to high risk due to potential for worsening cardiac status. Ms. Pagan had cath today and had 2 stents placed. Doing OK post procedure. Exam Alert. Comfortable Heart reg No wheeze I/P 1. NSTEMI 2. CAD Further diagnoses and plan as above.
--- NOTE | 2016-07-03 15:14 | Invasive Diagnostic Lab ---
Name: Jocelynn Pagan Date of Study: 07/03/2016 Date: 1940 Ht: 160.0 cm /63.0 in Medical Record#: [id number] Age: 75 Wt: 68.6 kg / 151.24 lb Account/Order#: [id number] Gender: Female BSA: 1.72 Order #: [id number] Fluoro Dose: 467 mGy BMI: 26.8 Procedure Physician: Thaddeus Alanis MD, [facility] Referring MD: Referring MD: Procedures Performed: LEFT HEART CATH Stent w/ PTCA Single Major Vessel Indications: Non-Stemi Impressions: There is severe one vessel coronary artery disease. The left ventricle is normal and has normal contractility EF 60% Patient had successful PTCA/Drug-Eluting Stent placement in the mid/distal RCA. Recommendations: Optimal medical therapy of patient's disease. Aggressive risk factor modification. History/Risk Factors: DVT ARTHRITIS Diabetes Hypertension Dyslipidemia Procedure Access obtained in the right Femoral artery by percutaneous puncture Patient had successful PTCA/Drug-Eluting Stent placement in the mid/distal RCA. Complications: None, None Contrast: Isovue 90ml Hemodynamics: Pressures Site Systolic/ A Wave Diastolic/ V Wave End Diastolic/ Mean HR AO 132 49 79 51 LV 147 -5 8 51 LV 145 -3 6 55 AO 141 48 80 52 AO 149 49 85 53 LV Ventriculography Ejection Method: LV Gram Ejection Fraction: 60% Wall Motion: LANDIS Anterobasal Normal Anterolateral Normal Apical: Normal Inferoapical Normal Inferobasal Normal Coronary Dominance: right Lesion Findings/Interventions * Left Main Coronary Artery The LMCA is angiographically free of disease. * Left Anterior Descending There is a 20% stenosis in the Proximal LAD. There is a 20% stenosis in the Mid LAD. * Circumflex There is a 50% stenosis in the 2nd Marginal and small OM 1 with ostial proximal 70% stenosis. Circumflex with minimal disease. * Right Coronary Artery There is a 12 mm long, 80% stenosis in the Mid RCA. The lesion has no thrombus present. An intervention was performed on the Mid RCA with a final stenosis of 0%. There were no lesion complications. The final JULY flow was 3. There is a 16 mm long, 90% stenosis in the Distal RCA. The lesion has no thrombus present. An intervention was performed on the Distal RCA with a final stenosis of 0%. There were no lesion complications. Interventional Device(s) Vessel Segment Type Name Diameter (mm) Length (mm) Mid RCA Drug Eluting Stent Synergy 2.5 12 Mid RCA Balloon Emerge Monorail 2.5 8 Distal RCA Drug Eluting Stent Synergy 2.5 16 Distal RCA Balloon Emerge Monorail 2.5 8 Updated by Beatrice Garcia RN on 07/03/2016 9:50:46 AM Thaddeus Alanis MD, FACC electronically signed on 07/03/2016 3:08:57 PM with status of Final
[2016-07-03] MEDS: *HR* Ticagrelor 90 MG TABLET PO SCH (21:03)
[2016-07-04] MEDS: Acetaminophen 325 MG TABLET PO PRN (03:34)
[2016-07-04 05:46] LABS: Basophils # 0.1 K/mcL (0.0-0.2); Basophils % 0.4 %; Eosinophils # 0.1 K/mcL (0.0-0.6); Eosinophils % 0.8 %; Hematocrit 35.1 % (35.3-44.9); Hemoglobin 11.5 g/dL (11.5-15.4); Immature Granulocytes % 0.4 % (0-4); Lymphocytes # 3.1 K/mcL (0.6-4.6); Mean Corpuscular HGB Conc 32.8 g/dL (31.6-35.5); Mean Corpuscular Hemoglobin 28.3 pg (28.0-33.3); Mean Corpuscular Volume 86.2 fL (83.0-100.0); Mean Platelet Volume 10.2 fL (9.4-12.4); Monocytes # 1.1 K/mcL (0.0-1.3); Monocytes % 9.3 %; Neutrophils # 7.5 K/mcL (1.6-8.9); Platelet Count 261 K/mcL (140-400); Red Blood Count 4.07 M/mcL (3.82-4.97); Red Cell Distribution Width 13.9 % (11.5-14.5); Segmented Neutrophils % 63.1 %
[2016-07-04 05:56] LABS: BUN/Creatinine Ratio 20 (6-26); Blood Urea Nitrogen 17 mg/dL (7-20); Calcium 9.4 mg/dL (8.6-10.8); Carbon Dioxide 20 mEq/L (19-29); Chloride 105 mEq/L (98-109); Glucose 157 mg/dL (70-99); Osmolality,Calculated 289 (280-300); Potassium 4.2 mEq/L (3.5-4.5); Sodium 137 mEq/L (136-145); eGFR For African Americans > 60 (> 60); eGFR For Non-African Americans > 60 (> 60)
[2016-07-04 07:51] VITALS: BP 151/58
--- NOTE | 2016-07-04 08:41 | Discharge Summary ---
<Varsha De Los Santos - Last Filed: 07/04/16 11:23> Date of Encounter: 07/04/16 Time of Encounter: 08:00 - Discharge Diagnosis (1) NSTEMI (non-ST elevated myocardial infarction) Priority: Primary Status: Acute (2) HTN (hypertension) Priority: Secondary Status: Chronic Qualifiers: Hypertension type: essential hypertension Qualified Code(s): I10 - Essential (primary) hypertension (3) Diabetes mellitus Priority: Secondary Status: Chronic Qualifiers: Diabetes mellitus type: type 2 Diabetes mellitus complication status: with circulatory complication Diabetes mellitus complication detail: with other circulatory complications Diabetes mellitus jail insulin use: without adjunct faculty for medical terminology use Qualified Code(s): E11.59 - Type 2 diabetes mellitus with other circulatory complications - Discharge Medications Prescriptions: Atorvastatin [Lipitor] 40 mg PO HS #30 tablet Ticagrelor [Brilinta] 90 mg PO BID #60 tablet Home Medications: Acetaminophen w/Cod 300-30 mg [Tylenol w/Codeine #3] 1 each PO Q6HR PRN [History] Amlodipine Besylate 10 mg PO DAILY 07/02/16 [History] Aspirin Enteric Coated [Aspirin EC] 81 mg PO DAILY 07/02/16 [History] Carvedilol 12.5 mg PO BID 07/02/16 [History] metFORMIN [Glucophage] 1,000 mg PO BIDWM 07/02/16 [History] Atorvastatin [Lipitor] 40 mg PO HS #30 tablet 07/04/16 [Rx] Ticagrelor [Brilinta] 90 mg PO BID #60 tablet 07/04/16 [Rx] Allergies/Adverse Reactions: Allergies Sulfa (Sulfonamide Antibiotics) Allergy (Severe, Verified 11/01/14 07:35) Hives Procedures/tests Complete & Pending: Procedures Performed prior 72 hours Category Date Time Status CL Cardiac Catheterization [CL] Routine Recruitment Assistant 07/02/16 16:12 Completed ECG 12 lead ECG [ECG] Stat Y 07/02/16 12:08 Completed EV echocardiogram Routine Y 07/02/16 12:11 Completed Date of admission: 07/02/16 13:25 Primary care physician: Margareth Miranda Consults: 07/02/16 13:24 Consult to Cardiology [CONS] Routine Comment: Consulting Provider: [facility] Reason for Consult: elevated troponin Time Notified: 13:25 Call Completed: Yes 07/03/16 07:51 Consult to Cardiac Rehabilitation-Phase1 [CONS] Routine Comment: Reason for Consult: NSTEMI Call Completed: No Discharging clinician: Varsha De Los Santos Anticipated date of discharge: 07/04/16 - Patient Status Disposition: Home, Self-Care Condition: Fair Functional capacity at discharge: independent ambulation Overall status at discharge: patient is progressing back to baseline - Discharge Instructions Instructions: Atorvastatin (By mouth), Ticagrelor (By mouth), Myocardial Infarction (DC), Diabetes Mellitus Type 2 in Adults (DC), Chronic Hypertension ( DC) Follow Up With: Margareth Meyer MD [Primary Care Provider] - (Within a week) [facility] [Provider Group] - 07/12/16 1:30 pm (IN [place]) Additional Instructions: Please take Brilinta 90 mg by mouth twice a day for anticoagulation. Please be aware that your Lipitor has been increased to 40 mg by mouth at bedtime. Please continue your home dose aspirin, Carvedilol, amlodipine and metformin. Please follow up with your primary care physician Dr. Meyer within a week after discharge. Please follow up with [facility] at 1:30 pm on 07/12/16 - Diet and Activity Activity: increase activity as tolerated Diet: diabetic diet, low fat, low cholesterol, low salt diet Hospital course: Ms. Pagan is a 75 year old female with PMH of DM2, HTN and hyperlipidemia. Patient presented to [facility] ED with complaint of throat pain radiating to neck, chest and bilateral arms. Patient was found to have elevated troponin at 0.209 and transferred to [facility] on 07/02/16 for NSTEMI. Troponin later trended down (0.20 & 0.14). No significant ischemic change on EKG. Echo on 07/02/16 found LVEF 60-65% with akniness of the basal inferior wall. Patient underwent LHC on 07/03/16 and was found to have severe one vessel CAD with normal EF 60% and 2 FEMI placed (in mid and distal GOLF [employer] DES[employer]ER). Patient was started on Brilinta for anticoagulation. Given patient is chest pain-free and remains hemodynamically stable after LHC, patient will be discharged home on with Brilinta 90 mg PO BID and increase of Lipitor to 40 mg PO qHS. Patient is instructed to continue her home dose aspirin, Carvedilol, amlodipine and metformin. Patient will follow up with your primary care physician Dr. Meyer within a week after discharge. Patient will also need outpatient follow up with [facility] at 1:30 pm on 07/12/16. - Time Spent with Patient Total time spent providing and/or coordinating discharge services: Greater than 30 minutes - Constitutional Vitals: Temp Pulse Resp BP Pulse Ox 97.8 F 50 16 151/58 95 07/04/16 07:45 07/04/16 07:45 07/04/16 07:45 07/04/16 07:45 07/04/16 07:45 General appearance: Present: cooperative, A&O X 3, no acute distress, answers questions appropriately - Head Head exam: Present: atraumatic, normocephalic - Eye Eye exam: Present: EOMI, PERRL, conjuntiva pink, sclera anicteric - Neck Neck exam general surgery: Present: supple, trachea midline. Absent: lymphadenopathy - Respiratory Respiratory exam: Present: CTAB. Absent: accessory muscle use, rales, rhonchi, wheezes - Cardiovascular Cardiovascular exam: Present: RRR, +S1, +S2. Absent: diastolic murmur, gallop, rubs, systolic murmur - GI/Abdominal GI/Abdominal exam: Present: normal bowel sounds, soft, no peritoneal signs. Absent: distended, tenderness - Extremities Exam Extremities exam: Present: warm, radial pulses palpable and symetrical. Absent : calf tenderness, cyanotic, pedal edema - Neurological Exam Neurological exam: Present: CN II-XII intact, oriented X3, no focal deficits. Absent: pronater drift, facial droop, speech deficit - Skin Skin exam: Present: dry, intact, warm <Baljit Busby - Last Filed: 07/04/16 18:14> Date of Encounter: 07/04/16 - Discharge Diagnosis (1) NSTEMI (non-ST elevated myocardial infarction) Status: Acute (2) CAD (coronary artery disease) Priority: Secondary Status: Acute Qualifiers: Coronary Disease-Associated Artery/Lesion type: [place] artery [place] vs. transplanted heart: [place] heart Associated angina: with unstable angina Qualified Code(s): I25.110 - Atherosclerotic heart disease of [place] coronary artery with unstable angina pectoris (3) Diabetes mellitus Status: Chronic Qualifiers: Diabetes mellitus type: type 2 Diabetes mellitus complication status: with circulatory complication Diabetes mellitus complication detail: with other circulatory complications Diabetes mellitus jail insulin use: without jail use Qualified Code(s): E11.59 - Type 2 diabetes mellitus with other circulatory complications (4) HTN (hypertension) Status: Chronic Qualifiers: Hypertension type: essential hypertension Qualified Code(s): I10 - Essential (primary) hypertension Procedures/tests Complete & Pending: Procedures Performed prior 72 hours Category Date Time Status CL Cardiac Catheterization [CL] Routine Recruitment Assistant 07/02/16 16:12 Completed ECG 12 lead ECG [ECG] Stat Y 07/02/16 12:08 Completed EV echocardiogram Routine Y 07/02/16 12:11 Completed Date of admission: 07/02/16 13:25 Primary care physician: Margareth Miranda Consults: 07/02/16 13:24 Consult to Cardiology [CONS] Routine Comment: Consulting Provider: [facility] Reason for Consult: elevated troponin Time Notified: 13:25 Call Completed: Yes 07/03/16 07:51 Consult to Cardiac Rehabilitation-Phase1 [CONS] Routine Comment: Reason for Consult: NSTEMI Call Completed: No Hospital course: Ms. Pagan is a 75 year old female - Time Spent with Patient Total time spent providing and/or coordinating discharge services: 38min - Constitutional Vitals: Temp Pulse Resp BP Pulse Ox 97.8 F 50 16 151/58 95 07/04/16 07:45 07/04/16 07:45 07/04/16 07:45 07/04/16 07:45 07/04/16 07:45 - Attending Attestation I examined this patient and my medical decision-making was reviewed with the Resident Physician on 07/04/16. I agree with the documented findings, disposition and treatment plan as described except to the extent set forth below. Ms. Pagan had cath and stents placed yesterday. She is doing OK this AM. She is afebrile with stable vitals. She is ready for discharge home. Exam Alert. Comfortable Heart reg No wheeze Plan D/C home today Follow with cardiology.
[2016-07-04] MEDS: Insulin LISPRO 300 UNITS/3 ML VIAL SQ SCH (08:55)
[2016-07-04] MEDS: *HR* Ticagrelor 90 MG TABLET PO SCH (09:00)
[2016-07-04] MEDS: Aspirin Enteric Coated 81 MG Tablet PO SCH (09:00)
--- NOTE | 2016-07-04 12:00 | Cardiology Progress Note ---
Date of Encounter: 07/04/16 Time of Encounter: 11:58 Assessment and Plan (1) NSTEMI (non-ST elevated myocardial infarction) Current Visit: Yes Status: Acute Troponin as high as 0.20. [facility] completed 07/03/16. EF 60%. S/p FEMI x2 to the mid and dRCA. 20% pLAD stenosis , 50% 2nd OM, 70% 1st OM stenosis (small vessel). TTE showed preserved EF, basal inferior wall hypokenesis, no significant valvular disease, mild pulmonary hypertension. Denies recurrent chest pain. Importance of DAPT with asa and brilinta uninterrupted for minimum of one year discussed with patient and daughter and they voiced understanding. Out-pt f/u will be scheduled in 7-10 days. Cardiac rehab reviewed. [facility] will coordinate f/u. Activity restrictions reviewed. No driving for one week. No heavy lifting over 10 lbs. No soaking in water for one week. (2) CAD (coronary artery disease) Current Visit: Yes Status: Acute S/p PCI to her RCA. Continue asa, brilinta, statin, bb. Qualifiers: Coronary Disease-Associated Artery/Lesion type: [place] artery [place] vs. transplanted heart: [place] heart Associated angina: with unstable angina Qualified Code(s): I25.110 - Atherosclerotic heart disease of [place] coronary artery with unstable angina pectoris Discussion w patient/family: The assessment and plan as outlined above was discussed with the patient and/or family members who expressed understanding and agreement. All questions were answered. Thank you for involving us in the care of your patient. Please call with any questions. Subjective Principal diagnosis: NSTEMI Interval history: Denies recurrent chest pain. Mild discomfort at the right groin access site. No hematoma. Objective Vital Signs Temp Pulse Resp BP Pulse Ox 07/04/16 07:45 97.8 F 50 16 151/58 95 07/04/16 03:00 98.1 F 54 16 133/52 95 07/03/16 23:50 62 18 156/57 93 07/03/16 21:09 96 07/03/16 20:00 65 17 136/90 96 07/03/16 16:13 98.0 F 57 18 137/67 95 07/03/16 14:00 18 192/105 07/03/16 13:08 97.6 F 59 18 144/55 97 07/03/16 13:00 52 18 144/55 07/03/16 12:47 53 18 143/75 96 Intake and Output 07/03/16 07/04/16 07/04/16 23:59 07:59 15:59 Intake Total 300 / 300 0 / 0 Balance 300 / 300 0 / 0 Intake: Oral 300 / 300 0 / 0 Other: # Voids 1 2 Weight 69.1 kg Blood Glucose* 242 151 Patient Weight 07/04/16 23:59 Weight 69.1 kg General: Conversant, No Apparent Distress HEENT: Atraumatic, Normocephaly, Mucus Membranes Moist Neck: No JVD, Normal carotid pulses Cardiac: Reg Rate and Rhythm, Normal S1 and S2, No Murmur, Other (SR-SB on telemetry. HR 48 while sleeping. Increased to 50's when awake. ) Lungs: Normal Breath Sounds, No Wheeze, Rales, Rhonchi Neuro: Alert and responsive, No focal deficits noted Abdomen: Soft, Non-Tender Skin: No rashes noted on visualized skin Musculoskeletal: No Chest Wall Tenderness Extremities: No Clubbing, No Cyanosis, No Edema, Normal Pulses Results 07/04/16 04:45 07/04/16 04:45 Lab Results 07/04/16 07/04/16 04:45 04:45 WBC 11.9 H Hgb 11.5 Hct 35.1 L Plt Count 261 Sodium 137 Potassium 4.2 Chloride 105 Carbon Dioxide 20 BUN 17 Creatinine 0.87 Glucose 157 H Calcium 9.4 - EKG Interpretation EKG results cardiology: other (24 hour telemetry review shows sius bradycardia. HR occasionally in the 40's during nocturnal hours. Avg HR 58 bpm. No pauses. 10 beat NSVT seen.) Consult Discharge Plan - Plan Instructions: Atorvastatin (By mouth), Ticagrelor (By mouth), Myocardial Infarction (DC), Diabetes Mellitus Type 2 in Adults (DC), Chronic Hypertension ( DC) Additional Instructions: Please take Brilinta 90 mg by mouth twice a day for anticoagulation. Please be aware that your Lipitor has been increased to 40 mg by mouth at bedtime. Please continue your home dose aspirin, Carvedilol, amlodipine and metformin. Please follow up with your primary care physician Dr. eMyer within a week after discharge. Please follow up with [facility] at 1:30 pm on 07/12/16 Referrals: [facility] [Provider Group] - 07/12/16 1:30 pm (IN [place]) Margareth Meyer MD [Primary Care Provider] - (Within a week) Prescriptions: Atorvastatin [Lipitor] 40 mg PO HS #30 tablet Ticagrelor [Brilinta] 90 mg PO BID #60 tablet
== END 2016-07-04 12:42 | disposition home or self-care (01) | DRG 247 ==
LOC: 2NENU
PROVIDERS: ADMIT Hospitalist; ATTEND Internal Medicine

== ENCOUNTER 2019-06-03 12:25 | Observation (INO) ==
[2019-06-03 14:03] LABS: Hematocrit 36.6 % (35.3-44.9); Hemoglobin 11.6 g/dL (11.5-15.4); Mean Corpuscular HGB Conc 31.7 g/dL (31.6-35.5); Mean Corpuscular Hemoglobin 28.9 pg (28.0-33.3); Mean Corpuscular Volume 91.3 fL (83.0-100.0); Mean Platelet Volume 10.5 fL (9.4-12.4); Platelet Count 259 K/mcL (140-400); Red Blood Count 4.01 M/mcL (3.82-4.97); Red Cell Distribution Width 13.1 % (11.5-14.5); White Blood Count 9.4 K/mcL (4.3-11.1)
[2019-06-03 14:27] LABS: Calcium 10.1 mg/dL (8.6-10.3); Potassium 4.9 mEq/L (3.5-5.1)
[2019-06-03 14:35] LABS: Bilirubin,Urine Negative (Negative); Blood,Urine Negative (Negative); Clarity,Urine Clear (Clear); Color,Urine Yellow (Yellow); Glucose,Urine (UA) Normal (Normal); Ketones,Urine Negative (Negative); Leukocyte Esterase,Urine Small (Negative); Nitrite,Urine Negative (Negative); PH,Urine 5.5 pH Units (5.0-8.0); Protein,Urine Negative (Neg-Trace); Specific Gravity,Urine 1.016 (1.010-1.025); Urobilinogen,Urine Normal (Normal)
[2019-06-03 14:37] LABS: Bacteria,Urine None Seen per hpf (None-Few); Hyaline Casts,Urine None Seen per lpf (None-Few); RBC,Urine 0-3 per hpf (0-3); Squamous Epithelial Cell,Urine Moderate per lpf (None-Few); WBC,Urine 0-3 per hpf (0-3)
[2019-06-03] MEDS ORDERED: Ondansetron 4 MG/2 ML VIAL IVP PRN (14:58)
[2019-06-03] MEDS ORDERED: Acetaminophen 325 MG TABLET PO PRN (14:58)
[2019-06-03] MEDS ORDERED: Naloxone 0.4 MG/ML INJ IVP PRN (14:58)
[2019-06-03] MEDS ORDERED: D5% in Water 1,000 ML IVC PRN (15:08)
[2019-06-03] MEDS ORDERED: Dextrose Gel 15 GM/37.5 ML TUBE PO PRN ×2 (15:08)
[2019-06-03] MEDS ORDERED: *HR* Dextrose 50 % in Water (Syg) 50 ML SYRINGE IVP PRN (15:08)
[2019-06-03] MEDS ORDERED: *HR* Acetaminophen w/Cod 300-30 mg 1 TAB TABLET PO PRN (15:28)
[2019-06-03] MEDS: 0.9 % Sodium Chloride 1,000 ML IVC SCH (16:16)
[2019-06-03] MEDS: Insulin LISPRO 300 UNITS/3 ML VIAL SQ SCH (17:25)
[2019-06-03] MEDS ORDERED: Insulin LISPRO 300 UNITS/3 ML VIAL SQ SCH (21:00)
[2019-06-03] MEDS ORDERED: *HR* Heparin 5,000 UNIT/ML VIAL SQ SCH (22:00)
[2019-06-04 01:58] LABS: Basophils # 0.1 K/mcL (0.0-0.2); Basophils % 0.8 %; Eosinophils # 0.1 K/mcL (0.0-0.6); Eosinophils % 1.6 %; Hematocrit 32.2 % (35.3-44.9); Hemoglobin 10.4 g/dL (11.5-15.4); Immature Granulocytes % 0.2 % (0-4); Lymphocytes # 2.8 K/mcL (0.6-4.6); Lymphocytes % 32.8 %; Mean Corpuscular HGB Conc 32.3 g/dL (31.6-35.5); Mean Corpuscular Hemoglobin 29.4 pg (28.0-33.3); Mean Platelet Volume 10.5 fL (9.4-12.4); Monocytes # 0.7 K/mcL (0.0-1.3); Monocytes % 8.5 %; Neutrophils # 4.8 K/mcL (1.6-8.9); Platelet Count 234 K/mcL (140-400); Red Blood Count 3.54 M/mcL (3.82-4.97); Red Cell Distribution Width 13.1 % (11.5-14.5); Segmented Neutrophils % 56.1 %; White Blood Count 8.5 K/mcL (4.3-11.1)
[2019-06-04 02:03] LABS: INR 1.2; Prothrombin Time 13.2 Seconds (9.4-12.1)
[2019-06-04 02:19] LABS: Albumin 3.9 g/dL (3.5-5.7); Albumin/Globulin Ratio 1.6 (1.1-2.2); Bilirubin,Total 0.4 mg/dL (0.3-1.0); Calcium 9.5 mg/dL (8.6-10.3); Chol/HDL Ratio 2.8 (0-4.9); Globulin 2.4 g/dL (2.4-3.5); Magnesium 1.2 mg/dL (1.6-2.6); Phosphorous 3.4 mg/dL (2.7-4.5); Potassium 4.5 mEq/L (3.5-5.1); Total Protein 6.3 g/dL (6.4-8.9)
[2019-06-04] MEDS: 0.9 % Sodium Chloride 1,000 ML IVC SCH (05:06)
[2019-06-04 07:40] VITALS: BP 165/68
[2019-06-04] MEDS ORDERED: 0.9 % Sodium Chloride 1,000 ML IVC ONE (08:20)
[2019-06-04] MEDS: Insulin LISPRO 300 UNITS/3 ML VIAL SQ SCH ×2 (08:56→12:34)
[2019-06-04] MEDS ORDERED: Carbidopa/Levodopa 25/100 TABLET PO SCH (09:00)
[2019-06-04] MEDS ORDERED: lisinopriL 5 MG TABLET PO SCH (09:00)
[2019-06-04] MEDS ORDERED: Carbidopa/Levodopa ER 50/200 TABLET PO SCH (09:00)
[2019-06-04] MEDS ORDERED: Aspirin Enteric Coated 81 MG Tablet PO SCH (09:00)
[2019-06-04] MEDS ORDERED: carvediloL 25 MG TABLET PO SCH (09:00)
[2019-06-04 09:18] LABS: Estimated Average Glucose 151 mg/dl
== END 2019-06-04 15:41 | disposition home or self-care (01) ==
LOC: 3BNU 12:25 → EMEROOARM 12:25 → SUATTDRO 14:55 → 3BNU 15:41
PROVIDERS: ADMIT Internal Medicine; ATTEND Internal Medicine